=== PATIENT | female | born 1985 | race African-American/Black ===

== ENCOUNTER 2019-11-08 21:30 | Inpatient (IN) | payer BC ==
[~2019-11-08] VITALS: Ht 170.2 cm; Wt 86.2 kg
[2019-11-08] MEDS ORDERED: LR 1,000 ML IV ONE (22:21)
[2019-11-08] MEDS ORDERED: LR 1,000 ML IV SCH (22:21)
[2019-11-08] MEDS ORDERED: OXYTOCIN/0.9 % SODIUM CHLORIDE 1,000 ML IV SCH (22:21)
[2019-11-08] MEDS ORDERED: LR 500 ML IV ONE (22:21)
[2019-11-08] MEDS ORDERED: TERBUTALINE SULFATE 1 MG/ML VIAL SUBCUT ONE (22:30)
[2019-11-08 23:11] LABS: BASOPHILS # (AUTO) 0.1 K/uL (0.0-0.2); BASOPHILS % (AUTO) 0.6 % (0.0-2.0); EOSINOPHILS % (AUTO) 0.2 % (0.0-4.0); HEMATOCRIT 34.6 % (36-48); HEMOGLOBIN 11.1 g/dL (12.0-16.0); LYMPHOCYTES # (AUTO) 1.9 K/uL (1.0-5.5); MEAN CORPUSCULAR HEMOGLOBIN 27 pg (27-31); MEAN CORPUSCULAR HGB CONC 32 % (32-36); MEAN CORPUSCULAR VOLUME 84 fL (79.0-98.0); MONOCYTES # (AUTO) 0.6 K/uL (0.0-1.0); MONOCYTES % (AUTO) 5.6 % (1.7-9.3); NEUTROPHILS # (AUTO) 8.6 K/uL (1.8-7.7); NEUTROPHILS % (AUTO) 76.6 % (40.0-70.0); PLATELET COUNT (AUTO) 189 K/uL (130-430); RED BLOOD CELL COUNT(AUTO) 4.12 MIL/uL (4.2-6.2); RED CELL DISTRIBUTION WIDTH 15.5 % (9.0-15.0); WHITE BLOOD COUNT (AUTO) 11.3 K/uL (4.8-10.8)
[2019-11-09] MEDS ORDERED: ROPIVACAINE HCL/PF 0.2% 200 ML ONE (00:08)
[2019-11-09] MEDS ORDERED: fentaNYL CITRATE/PF 100 MCG/2 ML AMP ONE (00:08)
[2019-11-09] MEDS ORDERED: ONDANSETRON HCL 4 MG/2 ML VIAL IVP PRN (01:15)
[2019-11-09] MEDS ORDERED: DIPHENHYDRAMINE INJ 50 MG/ML VIAL IVP PRN (01:15)
[2019-11-09] MEDS ORDERED: FENT2mCg/mL-ROPIVA0.2%/NS EPID 200 ML EP SCH (01:15)
[2019-11-09] MEDS ORDERED: NALOXONE HCL 0.4 MG/ML AMP (NARCAN) IVP PRN (01:15)
[2019-11-09 01:46] VITALS: BP_SYST 126
[2019-11-09] MEDS ORDERED: OXYCODONE/ACETAMINOPHEN 5-325 TABLET ONE (15:56)
[2019-11-09] MEDS ORDERED: OXYTOCIN/0.9 % SODIUM CHLORIDE 1,000 ML IV ONE (16:10)
[2019-11-09] MEDS ORDERED: OXYTOCIN/0.9 % SODIUM CHLORIDE 1,000 ML IV SCH (16:10)
[2019-11-09] MEDS ORDERED: DIPH-TET-PERTUS Vaccine 0.5 ML VIAL (ADACEL) I.M. PRN (16:15)
[2019-11-09] MEDS ORDERED: WITCH HAZEL LEAF 1 MED.PAD MED.PAD TP PRN (16:15)
[2019-11-09] MEDS ORDERED: HYDROcodone/ACETAMIN 5-325 MG TAB (NORCO/ VICODIN) PO PRN (16:15)
[2019-11-09] MEDS ORDERED: DERMOPLAST SPRAY TP PRN (16:15)
[2019-11-09] MEDS ORDERED: OXYCODONE/ACETAMINOPHEN 5-325 TABLET PO PRN (16:15)
[2019-11-09] MEDS ORDERED: ANUSOL 1 EA SUPP.RECT (PREPARATION H) RC PRN (16:15)
[2019-11-09] MEDS ORDERED: MEASLES,MUMPS&RUBELLA VACC/PF 12500 UNIT/0.5 ML VIAL SUBQ PRN (16:15)
[2019-11-09] MEDS ORDERED: METHYLERGONOVINE MALEATE 0.2 MG TABLET PO PRN (16:15)
[2019-11-09] MEDS ORDERED: HYDROCORTISONE 0.5%, 28.35 GM TOPICAL CREAM TP PRN (16:15)
[2019-11-09] MEDS ORDERED: LANOLIN 7 GM OINT. TP PRN (16:15)
[2019-11-09] MEDS ORDERED: RHO(D) IMMUNE GLOBULIN/MALTOSE 1500 UNITS/1.3 ML (WINHRO) IM PRN (16:15)
[2019-11-09] MEDS: IBUPROFEN 600 MG TABLET PO SCH ×2 (18:00→23:52)
[2019-11-09] MEDS ORDERED: TEMAZEPAM 15 MG CAPSULE PO PRN (21:00)
[2019-11-09] MEDS: OXYCODONE/ACETAMINOPHEN 5-325 TABLET PO PRN (21:26)
[2019-11-09] MEDS: DOCUSATE SODIUM 100 MG CAPSULE PO PRN (23:53)
[2019-11-10] MEDS: OXYCODONE/ACETAMINOPHEN 5-325 TABLET PO PRN ×2 (03:58→21:06)
[2019-11-10] MEDS: IBUPROFEN 600 MG TABLET PO SCH ×4 (06:08→23:46)
[2019-11-10] MEDS: DOCUSATE SODIUM 100 MG CAPSULE PO PRN (06:09)
[2019-11-10 09:28] LABS: BASOPHILS # (AUTO) 0.1 K/uL (0.0-0.2); BASOPHILS % (AUTO) 0.8 % (0.0-2.0); EOSINOPHILS # (AUTO) 0.2 K/uL (0.0-0.4); HEMATOCRIT 31.6 % (36-48); HEMOGLOBIN 10.4 g/dL (12.0-16.0); LYMPHOCYTES # (AUTO) 2.6 K/uL (1.0-5.5); LYMPHOCYTES % (AUTO) 17.2 % (20.5-51.5); MEAN CORPUSCULAR HEMOGLOBIN 28 pg (27-31); MEAN CORPUSCULAR HGB CONC 33 % (32-36); MEAN CORPUSCULAR VOLUME 85 fL (79.0-98.0); MONOCYTES # (AUTO) 0.9 K/uL (0.0-1.0); MONOCYTES % (AUTO) 6.1 % (1.7-9.3); NEUTROPHILS # (AUTO) 11.5 K/uL (1.8-7.7); NEUTROPHILS % (AUTO) 74.9 % (40.0-70.0); PLATELET COUNT (AUTO) 160 K/uL (130-430); RED BLOOD CELL COUNT(AUTO) 3.74 MIL/uL (4.2-6.2); WHITE BLOOD COUNT (AUTO) 15.3 K/uL (4.8-10.8)
[2019-11-11] MEDS: IBUPROFEN 600 MG TABLET PO SCH ×2 (06:32→12:36)
== END 2019-11-11 15:21 | disposition home or self-care (01) | DRG 806 ==
LOC: OBSVTOIN 21:30 → SPU 21:30
PROVIDERS: ADMIT Specialist; ATTEND Specialist
PROC: 10E0XZZ Delivery of Products of Conception, External Approach (ICD-10-PCS; principal; 2019-11-09)
PROC: 0HQ9XZZ Repair Perineum Skin, External Approach (ICD-10-PCS; 2019-11-09)
PROC: 3E0R3BZ Introduction of Anesthetic Agent into Spinal Canal, Percutaneous Approach (ICD-10-PCS; 2019-11-09)
PROC: 00HU33Z Insertion of Infusion Device into Spinal Canal, Percutaneous Approach (ICD-10-PCS; 2019-11-09)
DX: O70.0 First degree perineal laceration during delivery (principal); R71.0 Precipitous drop in hematocrit; Z37.0 Single live birth; Z3A.39 39 weeks gestation of pregnancy
CPT/HCPCS: 36415; 81002-TC; 85025; 86592; 86886; 86900; 86901; J3010; J7120